=== PATIENT | male | born 1980 | race Caucasian/White ===

== ENCOUNTER 2018-03-27 21:06 | Emergency (ER) | payer SELFPAY ==
[2018-03-27] MEDS: EPINEPHrine INJ 1 MG/ML 1ML AMP IM (21:14)
[2018-03-27] MEDS: NS 1,000 ML IV (21:14)
[2018-03-27] MEDS: methylPREDNISolone INJ 125 MG/2 ML VIAL (J2930) IV (21:15)
[2018-03-27] MEDS: FAMOTIDINE INJ 20MG/2ML VIAL (S0028) IVP (21:15)
[2018-03-27] MEDS: diphenhydrAMINE INJ 50MG/ML VIAL (J1200) IV (21:15)
[2018-03-27 21:47] LABS: BASO % 0.4 % (0.0-1.0); EOS # 0.2 10^3/uL (0.0-0.50); EOS % 2.2 % (0.0-3.0); HEMATOCRIT 42.2 % (42.0-52.0); HEMOGLOBIN 14.2 g/dl (13.5-17.5); IMMATURE GRANULOCYTE % 0.1 % (0-3.0); LYMPH # 3.3 10^3/uL (1.5-4.5); LYMPH % 44.3 % (24.0-44.0); MEAN CORPUSCULAR HEMOGLOBIN 31.6 pg (27.0-33.0); MEAN CORPUSCULAR HGB CONC 33.6 g/dl (32.0-36.5); MEAN CORPUSCULAR VOLUME 93.8 fl (80.0-96.0); MONO # 0.6 10^3/uL (0.0-0.8); MONO % 7.5 % (0.0-5.0); NEUTROPHILS # 3.4 10^3/uL (1.8-7.7); NEUTROPHILS % 45.5 % (36.0-66.0); PLATELET COUNT, AUTOMATED 265 10^3/uL (150-450); RED CELL DISTRIBUTION WIDTH 12.3 % (11.5-14.5); WHITE BLOOD COUNT 7.4 10^3/uL (4.0-10.0)
[2018-03-27 22:20] LABS: ANION GAP 7 MEQ/L (8-16); BLOOD UREA NITROGEN 15 MG/DL (7-18); CALCIUM LEVEL 8.3 MG/DL (8.5-10.1); CARBON DIOXIDE LEVEL 30 MEQ/L (21-32); CHLORIDE LEVEL 105 MEQ/L (98-107); CREATININE FOR GFR 0.88 MG/DL (0.70-1.30); GLOMERULAR FILTRATION RATE > 60.0 (>60); GLUCOSE, FASTING 103 MG/DL (70-100); SODIUM LEVEL 142 MEQ/L (136-145)
== END 2018-03-28 00:44 | disposition home or self-care (01) ==
LOC: M ED 03-28 00:44
DX: R22.0 Localized swelling, mass and lump, head (principal); R06.89 Other abnormalities of breathing; T78.1XXA Other adverse food reactions, not elsewhere classified, initial encounter; X58.XXXA Exposure to other specified factors, initial encounter; Y92.511 Restaurant or cafe as the place of occurrence of the external cause; F17.200 Nicotine dependence, unspecified, uncomplicated; Z91.018 Allergy to other foods; Z88.0 Allergy status to penicillin
CPT/HCPCS: J1200